=== PATIENT | male | born 1960 | race Caucasian/White ===

== ENCOUNTER → 2022-01-27 | Outpatient (CLI) | payer OTHER ==
--- NOTE | 2022-01-27 12:24 | MR ---
EXAMINATION TYPE: MR lumbar spine wo con DATE OF EXAM: 01/27/2022 COMPARISON: None HISTORY: Low back pain into nilda lower extremities, sciatica TECHNIQUE: Multiplanar, multisequence images of the lumbar spine were acquired without IV contrast. FINDINGS: Lumbar segments are intact. Grade 1 anterolisthesis of L4 on L5 without evidence of pars de fects. No paraspinal masses are identified. Conus medullaris has a normal appearance. Multilevel dis c desiccation. Type II Modic changes involving the inferior endplate of L5 and superior endplate of S 1. T12-L1: No disc herniation or central canal stenosis. Neural foramen are patent bilaterally. L1-L2: Broad-based disc bulge with a more effacement of the thecal sac. Facet hypertrophy demonstrate d. Mild bilateral neural foraminal stenosis. L2-L3: Broad-based disc bulge with a more effacement of the thecal sac. Facet hypertrophy demonstrate d. Mild bilateral neural foraminal stenosis. L3-L4: Broad-based disc bulge with mild effacement of the thecal sac. Facet hypertrophy associated. M ild bilateral neural foraminal stenosis. L4-L5: Grade 1 anterolisthesis of L4-L5 with uncovering of the disc. Broad-based disc bulge with face t atrophy contributing to mild to moderate spinal canal stenosis. Mild bilateral neural foraminal norma nosis. L5-S1: Posterior disc osteophyte complex with mild effacement of the anterior thecal sac along the le ft central lateral aspect. Facet arthropathy demonstrated. Moderate left neural foraminal stenosis. R ight neural foraminal stenosis. Other: There are 2 T2 hyperintense/T1 hypodense lesions within the superior pole the right kidney wit h largest measuring up to 3.8 cm and favored to represent cysts. This can be confirmed with renal ult rasound. IMPRESSION: 1. No disc herniation. 2. Multilevel degenerative disease and osteoarthritic changes most pronounced at L5-S1 as described above.
== END | disposition home or self-care (01) ==
LOC: RADMRIMAIN 11:06
PROVIDERS: ATTEND Family Medicine
DX: M47.27 Other spondylosis with radiculopathy, lumbosacral region (principal); M51.17 Intervertebral disc disorders with radiculopathy, lumbosacral region; M99.74 Connective tissue and disc stenosis of intervertebral foramina of sacral region; M43.16 Spondylolisthesis, lumbar region
CPT/HCPCS: 72148